=== PATIENT | female | born 2000 | race Asian ===

== ENCOUNTER 2024-06-02 16:54 | Inpatient (IN) ==
--- NOTE | 2024-06-02 18:04 | Emergency Department Note ---
Impression & Plan Optic neuritis, right, White matter abnormality on MRI of brain, Right-sided headache ED Provider Note NAME: CAMERON RINALDI AGE: 23 SEX: F : 2000 ARRIVES VIA: Walk-In \\INFORMANT: Patient ED PROVIDER(S): Chago Mari MD CHIEF COMPLAINT: Right sided headache, right eye blurred vision, ?optic neuritis, referred. 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 The patient was referred to ophthalmology ([facility]) this afternoon where her evaluation demonstrated defect within the right eye that was possibly consistent with optic neuritis. Patient was referred back to [facility] for further workup including "MRI and systemic workup". [facility] subsequently transferred the patient to the emergency department for testing. She is unaware of any known family history of multiple sclerosis or similar eye symptoms. [facility] was not available after hours per secretary bookkeeper attempt to contact. On evaluation the patient is no distress, afebrile stable vital signs. Pupils are dilated following her exam earlier today. Her visual mcknight are grossly intact. She has no discrete temporal tenderness. She has no focal logic deficits otherwise. EKG without overt acute ischemia. Chest x-ray negative for acute cardiopulmonary process per my preliminary independent interpretation. WBC, H/H and platelets within normal limits. Chemistry without metabolic acidosis. Electrolytes and LFTs are unremarkable. Lipase is normal. hCG negative. ESR and CRP are normal. Lyme screen was negative. MRI of the brain with and without contrast with MS protocol and MRI of the orbits with and without contrast were obtained and subsequently do show evidence of optic neuritis and demyelinating disease. Treatment was initiated with high-dose Solu-Medrol. Findings and plan for admission were reviewed with the patient and her friend and [employer] adviser at the bedside. Case was discussed with Dr. Mccloud, [facility] hospitalist, who will evaluate the patient for admission. Further management per admitting team. Triage Nursing notes reviewed and agree them. Prior/external medical records reviewed Vital Signs: reviewed Differential diagnosis: Conjunctivitis, trauma, corneal abrasion, hyphema, glaucoma, iritis, corneal ulcer, dendrite, CRAO, CRVO, vitreous detachment, retinal detachment, as well as other pathologies. ER treatment provided: See below. Diagnostics interpreted by me: ECG: Sinus bradycardia, 52 bpm, no ectopy, no overt ST elevation or depression, QTc 398, cures 78. Cardiac Monitoring: An order for continuous cardiac monitoring was placed and demonstrated Sinus bradycardia, 52 bpm, no ectopy Laboratory studies: See below Imaging studies: See below Consultation(s): Case was discussed with Dr. Mccloud, [facility] hospitalist, who will evaluate the patient for admission. 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 The patient was referred to ophthalmology this afternoon where her evaluation demonstrated defect within the right eye that was possibly consistent with optic neuritis. Patient was referred back to [facility] for further workup for this including "MRI and systemic workup". [facility] subsequently transferred the patient to emergency department for testing. ROS: See above HPI for pertinent positives & negatives. A total of 10 systems reviewed and were otherwise negative. VITALS:See Below PHYSICAL EXAMINATION: GENERAL: Awake, alert, well-appearing, in no distress HENT: Normocephalic, atraumatic. Oropharynx unremarkable. EYES: Normal conjunctiva. Sclera non-icteric. EOMI. No nystamgus. PEARRL. NECK: Supple. No nuchal rigidity. FROM. No JVD. RESPIRATORY: Clear to auscultation. CARDIAC: Regular rate, normal rhythm. Extremities warm and well perfused. Pulses equal. ABDOMEN: Soft, non-distended. No tenderness to palpation. No rebound or guarding. No masses. MUSCULOSKELETAL: Chest examination reveals no tenderness. The back is symmetrical on inspection without obvious abnormality. There is no CVA tenderness to palpation. No joint edema. LOWER EXTREMITIES: Calves are equal size bilaterally and non-tender. No edema. No discoloration. NEURO: Normal sensorium. No sensory or motor deficits noted. CNII-XII grossly intact. 5/5 strength and SILT x 4 extremities. Cerebellar function intact including [id number], alternating palms, [id number]. SKIN: No rash or jaundice noted. 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 Feels Safe at Home: Yes Allergies Allergies Allergy/AdvReac Type Severity Reaction Status Date / Time pineapple Allergy Unknown Unverified 06/02/24 22:05 Home Meds Home Medications Medication Instructions Recorded Confirmed No Known Home Medications 06/02/24 06/02/24 Results & Data (ED) Vital Signs Vital Signs - 24 hr 06/02/24 16:58 06/02/24 18:44 06/02/24 18:44 Temperature 36.7 C Temperature Source Oral Pulse Rate 82 55 L Pulse Rate [Apical] 55 L Pulse Rhythm [Apical] Pulse Strength [Apical] Respiratory Rate 20 17 17 Respiratory Effort / Characteristics Non-Labored Spontaneous Respiratory Depth Normal Respiratory Pattern Blood Pressure 127/77 Blood Pressure [Left Arm] 111/75 Blood Pressure Mean 93 Blood Pressure Mean [Left Arm] 87 Blood Pressure Position [Left Arm] Pulse Oximetry 98 99 99 Oxygen Delivery Method Room Air Room Air Room Air Sepsis Recent Fever Within 48 Hours No Sepsis New/Unexplained Change in Mental Status N/A Sepsis Action Taken by Nursing No Action Required 06/02/24 18:52 06/02/24 21:38 06/02/24 21:38 Temperature Temperature Source Pulse Rate 55 L Pulse Rate [Apical] 68 Pulse Rhythm [Apical] Pulse Strength [Apical] Respiratory Rate 14 Respiratory Effort / Characteristics Respiratory Depth Respiratory Pattern Blood Pressure Blood Pressure [Left Arm] 124/78 124/78 Blood Pressure Mean Blood Pressure Mean [Left Arm] 93 93 Blood Pressure Position [Left Arm] Sitting Pulse Oximetry 98 Oxygen Delivery Method Room Air Sepsis Recent Fever Within 48 Hours Sepsis New/Unexplained Change in Mental Status Sepsis Action Taken by Nursing 06/02/24 22:46 06/02/24 23:00 Temperature Temperature Source Pulse Rate 64 Pulse Rate [Apical] 59 L Pulse Rhythm [Apical] Regular Pulse Strength [Apical] Normal Respiratory Rate 18 Respiratory Effort / Characteristics Non-Labored Spontaneous Respiratory Depth Normal Respiratory Pattern Regular Blood Pressure Blood Pressure [Left Arm] Blood Pressure Mean Blood Pressure Mean [Left Arm] Blood Pressure Position [Left Arm] Pulse Oximetry 98 Oxygen Delivery Method Room Air Sepsis Recent Fever Within 48 Hours Sepsis New/Unexplained Change in Mental Status Sepsis Action Taken by Nursing Laboratory Data Attestation: I reviewed the patient's lab results. 06/02/24 18:20 06/02/24 18:20 Lab Results 06/02/24 06/02/24 Range/Units 18:01 18:20 WBC 8.56 (4.8-10.8) K/ul RBC 4.03 L (4.20-5.40) M/uL Hgb 12.6 (12.0-16.0) g/dl Hct 38.1 (37.0-47.0) % MCV 94.5 (80.0-100.0) fL MCH 31.3 (25.0-34.0) pg MCHC 33.1 (32.0-36.0) g/dL RDW Std Deviation 45.1 (36.4-46.3) fL RDW Coeff of Keenan 13.0 (11.5-14.5) % Plt Count 231 (130-400) K/uL MPV 9.4 (9.4-12.4) fL Immature Gran % (Auto) 0.2 % Neut % (Auto) 60.8 % Lymph % (Auto) 32.1 % [place] % (Auto) 6.0 % Eos % (Auto) 0.4 % Baso % (Auto) 0.5 % Neut # (Auto) 5.21 (1.40-6.50) K/uL Lymph # (Auto) 2.75 (1.20-3.40) K/uL [place] # (Auto) 0.51 (0.11-0.59) K/uL Eos # (Auto) 0.03 (0.00-0.50) K/uL Baso # (Auto) 0.04 (0.00-0.20) K/uL Immature Gran # (Auto) 0.02 (0.01-0.20) K/uL ESR 13 (0-20) mm/hr PT 10.7 (9.0-12.0) Seconds INR 1.0 (0.9-1.1) Sodium 139 (136-145) mmol/L Potassium 3.8 (3.5-5.1) mmol/L Chloride 106 (98-107) mmol/L Carbon Dioxide 27 (21-32) mmol/L Anion Gap 6 (3-11) BUN 14 (6-23) mg/dl Creatinine 0.74 (0.6-1.2) mg/dl Est Cr Clr Drug Dosing 79.0 ml/min eGFR 115.79 BUN/Creatinine Ratio 18.9 (10-20) Glucose 89 (70-99(Fasting)) mg/dl Calcium 9.8 (8.6-10.3) mg/dl Total Bilirubin 0.6 (0.2-1.0) mg/dl AST 17 (13-39) U/L ALT 11 (7-52) U/L Alkaline Phosphatase 40 (34-104) U/L Troponin I High Sens 2.4 (0-14) pg/ml C-Reactive Protein < 0.50 (0-0.5) mg/dl Total Protein 7.8 (6.0-8.3) gm/dl Albumin 4.9 (3.4-5.0) gm/dl Globulin 2.9 (2.5-4.0) gm/dl Albumin/Globulin Ratio 1.7 (0.9-2) Lipase 37 (11-82) U/L HCG, Qual Negative (Negative) Lyme Disease Screen Negative (Negative) Administered Medications Discontinued Medications Gadobutrol (Gadobutrol 65ml Vial) 4 ml IV ONCE ONE Stop: 06/02/24 20:08 Last Admin: 06/02/24 20:07 Dose: 4 ml Documented By: RADAMES Acetaminophen (Ofirmev) 1,000 mg in 100 mls @ 400 mls/hr IV NOW STA Stop: 06/02/24 21:35 Last Infusion: 06/02/24 22:06 Dose: Infused Documented By: Admin: 06/02/24 21:39 Dose: 400 mls/hr Documented By: REJI Sodium Chloride (Nss) 500 mls @ 999 mls/hr IV .Q31M ONE Stop: 06/02/24 21:51 Last Admin: 06/02/24 22:25 Dose: Not Given Documented By: REJI Methylprednisolone 500 mg/ (Dextrose) 108 mls @ 216 mls/hr IV TODAY@2200 [facility] Stop: 06/02/24 22:29 Last Infusion: 06/02/24 22:57 Dose: Infused Documented By: Admin: 06/02/24 22:21 Dose: 216 mls/hr Documented By: AVRamo Methylprednisolone 500 mg/ (Dextrose) 108 mls @ 216 mls/hr IV TODAY@2345 [facility] Stop: 06/03/24 00:14 Last Infusion: 06/03/24 00:35 Dose: Infused Documented By: Admin: 06/03/24 00:03 Dose: 216 mls/hr Documented By: ABRIL Imaging Data Radiologist's Impression: Chest X-Ray 06/02/24 18:03 XR chest 1V portable HISTORY: 23 years-old Female Chest pain, nonspecific acute chest pain COMPARISON: None available TECHNIQUE: AP view of the chest FINDINGS: Cardiomediastinal and hilar silhouettes appear normal. No pneumothorax, pleural effusion or airspace consolidation. The bones appear normal. IMPRESSION: Normal exam. ACT 112: Negative or not required by law. The above report was generated using voice recognition software. It may contain grammatical, syntax or spelling errors. Electronically signed by: Chandan Taylor M.D. 06/02/2024 6:24 PM Brain MRI 06/02/24 18:04 Exam(s): MRI HEAD W/WO Contrast IV Amt: 4cc gadavist EXAM: MR Head Without and With Intravenous Contrast CLINICAL HISTORY: Reason for exam: r/o optic neuritis, per optho. TECHNIQUE: Magnetic resonance images of the head/brain without and with intravenous contrast in multiple planes. CONTRAST: 4cc gadavist given IV COMPARISON: None. FINDINGS: Brain: Moderate, chronic white matter disease, nonspecific, though pattern suggestive of demyelinating disease. 3 mm enhancing focus in the left temporal deep white matter axial series , could reflect an acute demyelinating plaque. No other abnormal enhancement. No mass- effect, hemorrhage or acute infarct. Ventricles: No hydrocephalus or midline shift. Bones/joints: No acute finding. Soft tissues: No scalp hematoma. Optic nerve asymmetry, see separately dictated MRI orbit. Visualized Sinuses: Clear. Mastoid air cells: No mastoid effusion. IMPRESSION: 1. 3 mm enhancing nodule left temporal white matter, nonspecific, probably reflects an acute plaque. 2. Moderate, chronic, nonspecific white matter disease, concerning for demyelinating disease. Electronically signed by: Mary Boss M.D. 06/02/24 21:12 PM Orbit MRI 06/02/24 18:04 Exam(s): MRI ORBITS EXAM: MR Orbits With Intravenous Contrast CLINICAL HISTORY: Reason for exam: r/o optic neuritis, per optho. TECHNIQUE: Multiplanar magnetic resonance images of the orbits with intravenous contrast. CONTRAST: 4cc gadavist given IV COMPARISON: No relevant prior studies available. FINDINGS: Orbits: Increased signal and enhancement right optic nerve, nonspecific, given MRI brain findings, probably reflects optic neuritis. Neoplasm or other inflammatory/infectious abnormalities are not entirely excluded based on this exam alone.. Sinuses: Clear. No air-fluid levels. Bones/Soft tissues: Unremarkable. IMPRESSION: 1. Suspect RIGHT optic neuritis. Electronically signed by: Mary Boss M.D. 06/02/24 21:12 PM Discharge Plan Visit Data Chief Complaint: Eye Problems Stated Complaint: RT EYE, VISION PROBLEM, MRI TO BE DONE ED Provider: Chago Mari Discharge Problem: Optic neuritis, right, White matter abnormality on MRI of brain, Right-sided headache Forms Stand Alone Forms: [place] Prescriptions Prescriptions: No Action No Known Home Medications Referrals Referrals: [facility] [Primary Care Provider] -
--- NOTE | 2024-06-02 18:25 | XRay Report ---
XR chest 1V portable HISTORY: 23 years-old Female Chest pain, nonspecific acute chest pain COMPARISON: None available TECHNIQUE: AP view of the chest FINDINGS: Cardiomediastinal and hilar silhouettes appear normal. No pneumothorax, pleural effusion or airspace consolidation. The bones appear normal. IMPRESSION: Normal exam. ACT 112: Negative or not required by law. The above report was generated using voice recognition software. It may contain grammatical, syntax o r spelling errors. Electronically signed by: Chandan Taylor M.D. 06/02/2024 6:24 PM
[2024-06-02 18:44] LABS: Basophils # (auto) 0.04 K/uL (0.00-0.20); Basophils % (auto) 0.5 %; Eosinophils # (auto) 0.03 K/uL (0.00-0.50); Eosinophils % (auto) 0.4 %; Hematocrit (blood only) 38.1 % (37.0-47.0); Hemoglobin 12.6 g/dl (12.0-16.0); Immature Granulocytes # (auto) 0.02 K/uL (0.01-0.20); Immature Granulocytes % (auto) 0.2 %; Lymphocytes # (auto) 2.75 K/uL (1.20-3.40); Lymphocytes % (auto) 32.1 %; Mean Corpuscular Hemoglobin 31.3 pg (25.0-34.0); Mean Corpuscular Hgb Conc 33.1 g/dL (32.0-36.0); Mean Corpuscular Volume 94.5 fL (80.0-100.0); Mean Platelet Volume 9.4 fL (9.4-12.4); Monocytes # (auto) 0.51 K/uL (0.11-0.59); Neutrophils # (auto) 5.21 K/uL (1.40-6.50); Neutrophils % (auto) 60.8 %; Platelet Count 231 K/uL (130-400); RDW Standard Deviation 45.1 fL (36.4-46.3); Red Blood Count 4.03 M/uL (4.20-5.40); White Blood Count 8.56 K/ul (4.8-10.8)
[2024-06-02 19:00] LABS: Alanine Aminotransferase 11 U/L (7-52); Albumin Globulin Ratio 1.7 (0.9-2); Albumin Level 4.9 gm/dl (3.4-5.0); Alkaline Phosphatase 40 U/L (34-104); Anion Gap 6 (3-11); Aspartate Aminotransferase 17 U/L (13-39); BUN Creatinine Ratio 18.9 (10-20); Bilirubin,Total 0.6 mg/dl (0.2-1.0); Blood Urea Nitrogen 14 mg/dl (6-23); Calcium 9.8 mg/dl (8.6-10.3); Carbon Dioxide 27 mmol/L (21-32); Chloride 106 mmol/L (98-107); Globulin 2.9 gm/dl (2.5-4.0); Glucose 89 mg/dl (70-99(Fasting)); Lipase 37 U/L (11-82); Potassium 3.8 mmol/L (3.5-5.1); Sodium 139 mmol/L (136-145); Total Protein 7.8 gm/dl (6.0-8.3)
[2024-06-02 19:06] LABS: Troponin I High Sensitivity 2.4 pg/ml (0-14)
[2024-06-02 19:36] LABS: Prothrombin Time 10.7 Seconds (9.0-12.0)
[2024-06-02] MEDS: GADOBUTROL 65ML VIAL IV ONE (20:07)
[2024-06-02 20:10] LABS: Pregnancy Test, Serum Negative (Negative)
--- NOTE | 2024-06-02 21:13 | Magnetic Resonance Report ---
Exam(s): MRI ORBITS EXAM: MR Orbits With Intravenous Contrast CLINICAL HISTORY: Reason for exam: r/o optic neuritis, per optho. TECHNIQUE: Multiplanar magnetic resonance images of the orbits with intravenous contrast. CONTRAST: 4cc gadavist given IV COMPARISON: No relevant prior studies available. FINDINGS: Orbits: Increased signal and enhancement right optic nerve, nonspecific, given MRI brain findings, probably reflects optic neuritis. Neoplasm or other inflammatory/infectious abnormalities are not entirely excluded based on this exam alone.. Sinuses: Clear. No air-fluid levels. Bones/Soft tissues: Unremarkable. IMPRESSION: 1. Suspect RIGHT optic neuritis. Electronically signed by: Mary Boss M.D. 06/02/24 21:12 PM
--- NOTE | 2024-06-02 21:14 | Magnetic Resonance Report ---
Exam(s): MRI HEAD W/WO Contrast IV Amt: 4cc gadavist EXAM: MR Head Without and With Intravenous Contrast CLINICAL HISTORY: Reason for exam: r/o optic neuritis, per optho. TECHNIQUE: Magnetic resonance images of the head/brain without and with intravenous contrast in multiple planes. CONTRAST: 4cc gadavist given IV COMPARISON: None. FINDINGS: Brain: Moderate, chronic white matter disease, nonspecific, though pattern suggestive of demyelinating disease. 3 mm enhancing focus in the left temporal deep white matter axial series 1416, could reflect an acute demyelinating plaque. No other abnormal enhancement. No mass- effect, hemorrhage or acute infarct. Ventricles: No hydrocephalus or midline shift. Bones/joints: No acute finding. Soft tissues: No scalp hematoma. Optic nerve asymmetry, see separately dictated MRI orbit. Visualized Sinuses: Clear. Mastoid air cells: No mastoid effusion. IMPRESSION: 1. 3 mm enhancing nodule left temporal white matter, nonspecific, probably reflects an acute plaque. 2. Moderate, chronic, nonspecific white matter disease, concerning for demyelinating disease. Electronically signed by: Mary Boss M.D. 06/02/24 21:12 PM
[2024-06-02] MEDS ORDERED: methylPREDNISolone 1000 MG/16 ML IV STA (21:21)
[2024-06-02] MEDS: ACETAMINOPHEN 1,000 MG/100 ML VIAL IV STA (21:39)
[2024-06-02 21:46] LABS: C Reactive Protein < 0.50 mg/dl (0-0.5)
[2024-06-02] MEDS: methylPREDNISolone 500 MG in DEXTROSE 5% 100 ML IV SCH (22:21)
[2024-06-02] MEDS: SODIUM CHLORIDE 0.9% 500 ML IV ONE (22:25)
[2024-06-02] MEDS ORDERED: methylPREDNISolone 125 MG/2 ML VIAL IV STA (23:26)
[2024-06-03] MEDS: MINI B IV SCH (00:03)
[2024-06-03] MEDS: DEXTROSE 5% IV SCH (00:03)
[2024-06-03] MEDS: METHYLPREDNISOLONE IV SCH (00:03)
[2024-06-03] MEDS ORDERED: ONDANSETRON INJ 2 MG/ML 2 ML VIAL IV PRN (01:31)
--- NOTE | 2024-06-03 02:31 | History & Physical Report ---
Date of Service June 03, 2024 Assessment & Plan (1) Demyelinating disease: (2) Right-sided headache: (3) White matter abnormality on MRI of brain: (4) Optic neuritis, right: Plan Right-sided headache/right optic neuritis/abnormal MRI of brain suggesting demyelinating disease- Patient initially presented to [facility] with complaint of right-sided headache for 2 weeks, and progressively worsening blurred vision over the past week. She was then seen by ophthalmology Dr. Hu, who noted an abnormal visual field test suggestive of optic neuritis, and the patient was sent back to [facility]. 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 [facility] sent her to ophthalmology Dr. Hu, who did visual field testing with concerns regarding possibility of optic neuritis. He then sent the patient back to [facility], who then sent the patient to [facility] for further evaluation. In the emergency department, patient underwent an MRI brain with and without contrast which showed a 3 mm enhancing nodular left temporal white matter, likely representing an acute plaque. There was also noted moderate chronic white matter disease, concerning for demyelinating disease. MRI of orbits was concerning for possible right optic neuritis. The patient was then given methylprednisolone 500 mg IV by the ED, and referred for evaluation for admission. 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 She presents to the emergency department this evening with symptoms as noted above. In addition, she feels generally weak, and has occasional issues with memory function. Allergies Allergy/AdvReac Type Severity Reaction Status Date / Time pineapple Allergy Unknown Unverified 06/02/24 22:05 Home Medications Medication Instructions Recorded Confirmed Type No Known Home Medications 06/02/24 06/02/24 History Past Med/Surg History Problem List (Updated 06/03/24 @ 03:38 by Sancho Mccloud MD) Demyelinating disease Right-sided headache (Acute) White matter abnormality on MRI of brain (Acute) Optic neuritis, right (Acute) Medical History (Updated 06/03/24 @ 03:38 by Sancho Mccloud MD) Kidney stone Social History (Updated 06/03/24 @ 01:01 by Chago Mari MD) Smoking Status: Current every day smoker Tobacco Type: Cigarettes Hx Alcohol Use: No Hx Substance Use: No Preferred Language: British Communication Ability: Effective Communication Tools: IPad Metal Hanging Supervisor Required: No Beliefs That Will Affect Care: None current occupational status: student 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 The review of systems is otherwise negative other than for that already noted above, and at least 10 systems have been reviewed. Physical Exam Physical Exam: The patient is awake, alert and oriented 3, well developed and well nourished, normocephalic and atraumatic, lying in bed and in no acute distress. HEENT--PERRL, EOMI, Regino Seda pupil on right. Mucous membranes and oropharynx normal Neck--supple. No JVD. No bruits. Thyroid normal, trachea midline, no adenopathy. Heart--normal S1 and S2. No murmurs, rubs or gallops. Lungs--clear bilaterally, no respiratory distress, no accessory muscle use. Abdomen--normal bowel sounds and soft. Nontender. Nondistended, no hernias or masses, no organomegaly. Extremities--no cyanosis or clubbing. No edema. There are good distal pulses b/l. Dermatologic--normal skin turgor, normal color, no abnormal lymph nodes, no rash. Neurologic--cranial nerves II through XII grossly intact. Rheumatologic--normal range of motion. Psychiatric--normal affect. Results & Data Results & Data Vital Signs (Past 12 Hours) Vital Signs Temp Pulse Pulse Resp BP BP Pulse Ox 06/03/24 01:43 98 06/03/24 01:31 49 L 17 98 06/03/24 01:00 48 L 15 104/65 98 06/02/24 23:00 59 L 18 98 06/02/24 22:46 64 06/02/24 21:38 124/78 06/02/24 21:38 68 14 124/78 98 06/02/24 18:52 55 L 06/02/24 18:44 55 L 17 99 06/02/24 18:44 55 L 17 111/75 99 06/02/24 16:58 36.7 C 82 20 127/77 98 O2 Del Method 06/03/24 01:43 Room Air 06/03/24 01:31 06/03/24 01:00 Room Air 06/02/24 23:00 Room Air 06/02/24 22:46 06/02/24 21:38 06/02/24 21:38 Room Air 06/02/24 18:52 06/02/24 18:44 Room Air 06/02/24 18:44 Room Air 06/02/24 16:58 Room Air Laboratory Results Laboratory Results WBC 8.56 K/ul (4.8-10.8) 06/02/24 18:20 RBC 4.03 M/uL (4.20-5.40) L 06/02/24 18:20 Hgb 12.6 g/dl (12.0-16.0) 06/02/24 18:20 Hct 38.1 % (37.0-47.0) 06/02/24 18:20 MCV 94.5 fL (80.0-100.0) 06/02/24 18:20 MCH 31.3 pg (25.0-34.0) 06/02/24 18:20 MCHC 33.1 g/dL (32.0-36.0) 06/02/24 18:20 RDW Std Deviation 45.1 fL (36.4-46.3) 06/02/24 18:20 RDW Coeff of Keenan 13.0 % (11.5-14.5) 06/02/24 18:20 Plt Count 231 K/uL (130-400) 06/02/24 18:20 MPV 9.4 fL (9.4-12.4) 06/02/24 18:20 Immature Gran % (Auto) 0.2 % 06/02/24 18:20 Neut % (Auto) 60.8 % 06/02/24 18:20 Lymph % (Auto) 32.1 % 06/02/24 18:20 [place] % (Auto) 6.0 % 06/02/24 18:20 Eos % (Auto) 0.4 % 06/02/24 18:20 Baso % (Auto) 0.5 % 06/02/24 18:20 Neut # (Auto) 5.21 K/uL (1.40-6.50) 06/02/24 18:20 Lymph # (Auto) 2.75 K/uL (1.20-3.40) 06/02/24 18:20 Lajas # (Auto) 0.51 K/uL (0.11-0.59) 06/02/24 18:20 Eos # (Auto) 0.03 K/uL (0.00-0.50) 06/02/24 18:20 Baso # (Auto) 0.04 K/uL (0.00-0.20) 06/02/24 18:20 Immature Gran # (Auto) 0.02 K/uL (0.01-0.20) 06/02/24 18:20 ESR 13 mm/hr (0-20) 06/02/24 18:20 PT 10.7 Seconds (9.0-12.0) 06/02/24 18:20 INR 1.0 (0.9-1.1) 06/02/24 18:20 Sodium 139 mmol/L (136-145) 06/02/24 18:20 Potassium 3.8 mmol/L (3.5-5.1) 06/02/24 18:20 Chloride 106 mmol/L (98-107) 06/02/24 18:20 Carbon Dioxide 27 mmol/L (21-32) 06/02/24 18:20 Anion Gap 6 (3-11) 06/02/24 18:20 BUN 14 mg/dl (6-23) 06/02/24 18:20 Creatinine 0.74 mg/dl (0.6-1.2) 06/02/24 18:20 Est Cr Clr Drug Dosing 79.0 ml/min 06/02/24 18:20 eGFR 115.79 06/02/24 18:20 BUN/Creatinine Ratio 18.9 (10-20) 06/02/24 18:20 Glucose 89 mg/dl (70-99(Fasting)) 06/02/24 18:20 Calcium 9.8 mg/dl (8.6-10.3) 06/02/24 18:20 Total Bilirubin 0.6 mg/dl (0.2-1.0) 06/02/24 18:20 AST 17 U/L (13-39) 06/02/24 18:20 ALT 11 U/L (7-52) 06/02/24 18:20 Alkaline Phosphatase 40 U/L (34-104) 06/02/24 18:20 Troponin I High Sens 2.4 pg/ml (0-14) 06/02/24 18:20 C-Reactive Protein < 0.50 mg/dl (0-0.5) 06/02/24 18:20 Total Protein 7.8 gm/dl (6.0-8.3) 06/02/24 18:20 Albumin 4.9 gm/dl (3.4-5.0) 06/02/24 18:20 Globulin 2.9 gm/dl (2.5-4.0) 06/02/24 18:20 Albumin/Globulin Ratio 1.7 (0.9-2) 06/02/24 18:20 Lipase 37 U/L (11-82) 06/02/24 18:20 HCG, Qual Negative (Negative) 06/02/24 18:01 Lyme Disease Screen Negative (Negative) 06/02/24 18:20 Impressions Chest X-Ray 06/02/24 18:03 XR chest 1V portable HISTORY: 23 years-old Female Chest pain, nonspecific acute chest pain COMPARISON: None available TECHNIQUE: AP view of the chest FINDINGS: Cardiomediastinal and hilar silhouettes appear normal. No pneumothorax, pleural effusion or airspace consolidation. The bones appear normal. IMPRESSION: Normal exam. ACT 112: Negative or not required by law. The above report was generated using voice recognition software. It may contain grammatical, syntax or spelling errors. Electronically signed by: Chandan Taylor M.D. 06/02/2024 6:24 PM Brain MRI 06/02/24 18:04 Exam(s): MRI HEAD W/WO Contrast IV Amt: 4cc gadavist EXAM: MR Head Without and With Intravenous Contrast CLINICAL HISTORY: Reason for exam: r/o optic neuritis, per optho. TECHNIQUE: Magnetic resonance images of the head/brain without and with intravenous contrast in multiple planes. CONTRAST: 4cc gadavist given IV COMPARISON: None. FINDINGS: Brain: Moderate, chronic white matter disease, nonspecific, though pattern suggestive of demyelinating disease. 3 mm enhancing focus in the left temporal deep white matter axial series 14/16, could reflect an acute demyelinating plaque. No other abnormal enhancement. No mass- effect, hemorrhage or acute infarct. Ventricles: No hydrocephalus or midline shift. Bones/joints: No acute finding. Soft tissues: No scalp hematoma. Optic nerve asymmetry, see separately dictated MRI orbit. Visualized Sinuses: Clear. Mastoid air cells: No mastoid effusion. IMPRESSION: 1. 3 mm enhancing nodule left temporal white matter, nonspecific, probably reflects an acute plaque. 2. Moderate, chronic, nonspecific white matter disease, concerning for demyelinating disease. Electronically signed by: Mary Boss M.D. 06/02/24 21:12 PM Orbit MRI 06/02/24 18:04 Exam(s): MRI ORBITS EXAM: MR Orbits With Intravenous Contrast CLINICAL HISTORY: Reason for exam: r/o optic neuritis, per optho. TECHNIQUE: Multiplanar magnetic resonance images of the orbits with intravenous contrast. CONTRAST: 4cc gadavist given IV COMPARISON: No relevant prior studies available. FINDINGS: Orbits: Increased signal and enhancement right optic nerve, nonspecific, given MRI brain findings, probably reflects optic neuritis. Neoplasm or other inflammatory/infectious abnormalities are not entirely excluded based on this exam alone.. Sinuses: Clear. No air-fluid levels. Bones/Soft tissues: Unremarkable. IMPRESSION: 1. Suspect RIGHT optic neuritis. Electronically signed by: Mary Boss M.D. 06/02/24 21:12 PM Code Status & VTE Plan Code Status Full code VTE Prophylaxis Plan VTE Prophylaxis will be ordered: Yes PG Care Time/CCT Total # of Minutes Spent Total Time Spent with Patient: Total time spent is greater than 50% in coordination of care (as documented) at patient's floor/unit and/or counseling patient: Coding Level of Care Code 00281 INT INP/OBS CARE 2/55MIN Diagnoses Demyelinating disease G37.9 Right-sided headache R51.9 White matter abnormality on MRI of brain R90.82 Optic neuritis, right H46.9
[2024-06-03 06:59] LABS: Basophils # (auto) 0.01 K/uL (0.00-0.20); Basophils % (auto) 0.1 %; Hematocrit (blood only) 37.7 % (37.0-47.0); Hemoglobin 12.3 g/dl (12.0-16.0); Immature Granulocytes # (auto) 0.02 K/uL (0.01-0.20); Immature Granulocytes % (auto) 0.3 %; Lymphocytes # (auto) 0.89 K/uL (1.20-3.40); Lymphocytes % (auto) 13.1 %; Mean Corpuscular Hemoglobin 30.8 pg (25.0-34.0); Mean Corpuscular Hgb Conc 32.6 g/dL (32.0-36.0); Mean Corpuscular Volume 94.3 fL (80.0-100.0); Mean Platelet Volume 9.5 fL (9.4-12.4); Monocytes # (auto) 0.03 K/uL (0.11-0.59); Monocytes % (auto) 0.4 %; Neutrophils # (auto) 5.85 K/uL (1.40-6.50); Neutrophils % (auto) 86.1 %; Platelet Count 223 K/uL (130-400); RDW Coefficient of Variation 12.8 % (11.5-14.5); RDW Standard Deviation 44.4 fL (36.4-46.3)
--- NOTE | 2024-06-03 07:10 | Hospitalist Progress Note ---
Date of Service June 03, 2024 Assessment & Plan (1) Demyelinating disease: (2) Right-sided headache: (3) White matter abnormality on MRI of brain: (4) Optic neuritis, right: Plan Right-sided headache/right optic neuritis/abnormal MRI of brain suggesting demyelinating disease Patient was c/o of head and progressing blurry vision. She was seen by providers at [facility] and initially referred to ophthalmology. She came to the ED by recommendation of [facility] and found to have brain imaging changes consistent with Multiple Sclerosis. In the ED, patient received Solu- Medrol 500 mg IV x 2, acetaminophen 1 g IV, and NSS 500 mL bolus Pt was admitted to Med tele unit for further work up. Neurology consulted further testing. -Consult neurology Recommended lumbar puncture with CSF testing, cervical and thoracic MRI, LAM panel and CHRISTELLE virus antibody - IV Solu-Medrol 1000 mg x 2 days - Lyme panel - AM labs: B12, VitD Dispo: Med tele Diet: Regular Code: full VTE prophylaxis: SCD Admission and Anticipated Discharge Date Admission Date: June 02, 2024 Supervising Physician Co-Signing Physician Notes I personally examined the patient and verified all kang points of history and exam, discussed case, and agree with decision making with Dr Tinsley feeling about the same with vision and brain fog. extensive discussion with pt, academic support, friend (both with patient's permission) and utilized [employer] operations research group manager as well. she asked good questions and expressed good understanding new dx MS - steroids 1g solumedrol x3 days. LP done, MRI Cspine, Tspine ordered, pending. supportive care, get set up for close PCP and neuro follow up locally otherwise as above Subjective Pt is a 23 yo female who presented to ED with c/o headache and changes in her vision. Pt had also been noting general weakness in arm and legs. She underwent Brain MRI with/without contrast and found changes consistent with multiple sclerosis. Pt was started on corticosteroid. This morning, pt is noting improvement in extremity strength and reduction in PALMA, but continued with blurry vision. Review of Systems Review of Systems: As per HPI Physical Exam Physical Exam: The patient is awake, alert and oriented 3,normocephalic and atraumatic, sitting up in bed and in no acute distress. HEENT--PERRL, EOMI, Mucous membranes and oropharynx normal Neck--supple. No JVD. No bruits. No adenopathy. Heart--normal S1 and S2. No murmurs, rubs or gallops. Lungs--clear bilaterally, no respiratory distress, no accessory muscle use. Abdomen--normal bowel sounds and soft. Nontender. Nondistended Extremities--no cyanosis or clubbing. No edema. There are good distal pulses b/l. Dermatologic--normal skin turgor, normal color, no abnormal lymph nodes, no rash. Neurologic--cranial nerves II through XII grossly intact. Rheumatologic--normal range of motion. Psychiatric--normal affect. Results & Data Results & Data Vital Signs (Past 12 Hours) Vital Signs Pulse Pulse Resp BP BP Pulse Ox Pulse Ox 06/03/24 06:09 41 L 17 94/59 L 97 06/03/24 03:52 99 06/03/24 01:43 98 06/03/24 01:31 49 L 17 98 06/03/24 01:00 48 L 15 104/65 98 06/02/24 23:00 59 L 18 98 06/02/24 22:46 64 06/02/24 21:38 124/78 06/02/24 21:38 68 14 124/78 98 O2 Del Method O2 Del Method 06/03/24 06:09 Room Air 06/03/24 03:52 Room Air 06/03/24 01:43 Room Air 06/03/24 01:31 06/03/24 01:00 Room Air 06/02/24 23:00 Room Air 06/02/24 22:46 06/02/24 21:38 06/02/24 21:38 Room Air Resident Activity Tracking Resident Involvement: Resident Care Provided Care Provided: Adult Hospital Medicine
[2024-06-03 07:36] LABS: Albumin Globulin Ratio 1.8 (0.9-2); Albumin Level 4.5 gm/dl (3.4-5.0); BUN Creatinine Ratio 18.8 (10-20); Bilirubin,Total 0.7 mg/dl (0.2-1.0); Calcium 9.1 mg/dl (8.6-10.3); Creatinine Clr Calc Pharmacy 91.4 ml/min; Globulin 2.5 gm/dl (2.5-4.0); Magnesium 2.1 mg/dl (1.7-2.4); Potassium 4.6 mmol/L (3.5-5.1)
--- NOTE | 2024-06-03 10:45 | Neurology Consultation ---
Date of Consultation June 03, 2024 Assessment & Plan (1) Demyelinating disease: (2) Right-sided headache: (3) Optic neuritis, right: Plan Patient has a 1 week history of blurry vision in the right eye of sudden onset. Ophthalmologic examination plus MRI of the brain is consistent with an acute right optic neuritis. MRI of the brain with and without contrast shows multiple lesions scattered throughout the hemispheres, cerebellum, brainstem, and probable spinal cord. T he perpendicular periventricular lesions (Rod's fingers) are very suggestive of multiple sclerosis. Although she does not have a lot of history suggestive of MS (left hand numbness for 2 weeks back in January of this year), her clinical picture fits that of MS. She does not have an obvious rheumatologic condition or Lyme's disease (which could imitate MS). Recommendations: 1. A lumbar puncture sending for MS special protein panel, Lyme disease is reasonable. Ideally this should be done before steroids are given. 2. Solu-Medrol 1 g daily x 3 days. This should be followed by a Medrol Dosepak orally. 3. Check LAM profile 12, also get a CHRISTELLE virus antibody titer and AQP4-IgG (for neuromyelitis optica) 4. MRIs of the cervical spine and thoracic spine (both with and without contrast) to evaluate the extent and severity of MS (disease burden). 5. Follow-up with neurology as an outpatient in 2 to 3 weeks (could be sooner with neurology PA via telehealth if the patient gets onto the [facility] portal). We will consider definitive disease modifying therapy at that time Overall, I spent a total of 90 minutes with this case including review of records, review of MRI films, direct evaluation the patient at bedside, report generation, and discussion of the case with the patient and RN at bedside, and Dr. Champion, including differential diagnosis and treatment options. History of Present Illness Reason for Consultation: Patient is a 23-year-old, who was asked to see at the request of Dr. Klaudia ferguson, for neurologic consultation regarding vision issues and possible MS. Requesting Physician: Dr. 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 She is on no medication and has no significant/ongoing medical problems. 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 There have been episodes of dizziness and headache but no other discrete neurologic dysfunction episodes that I can gather. The patient has a longstanding history of intermittent headaches starting from early high school. Currently they are occurring about twice a month. The headache tends to be bifrontal radiating back around to the occipital head regions bilaterally. There is no nausea, vomiting, photophobia, or phonophobia. She will take pain medicine that she gets [id number] from [employer] which helps. As far as I can tell it is likely an ibuprofen product. She had the sudden onset of blurry vision in her right eye about 1 week ago. She has been having right-sided headaches intermittently for a couple of weeks. This blurry vision has persisted and is only involving the right eye (when she covers the right eye her left eye sees clearly. It is a little worse when she looks up with the right eye as opposed to straight ahead. The patient saw a clinician at [facility], who told her that she had right optic neuritis. She arrived to the emergency room at 1651 on June 02 with a temperature of 36.7, pulse 82 and regular, respirate 20, blood pressure 122/77, and O2 saturation 98%. Neurologic examination was largely unremarkable. CBC was unremarkable. Sed rate was 13 and CRP less than 0.5. CHEM profile was unremarkable, test was negative and her Lyme test was negative. Chest x-ray was unremarkable. MRI of the brain with and without contrast which showed multiple white matter spots of varying size with many perpendicular to the ventricles (Rod's fingers). I also saw lesions in the cerebellum, jennifer, and cervical spine (on sagittal). There was 1 lesion in the left temporal lobe of 3 mm that enhanced, likely acute plaque. MRI of the orbits showed distinct inflammation of the distal right optic nerve. I reviewed all of these films. Patient was given 1 g of IV Solu-Medrol. This morning she is about the same although her headache is improved. She still has the blurry vision. 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 Beliefs That Will Affect Care: None current occupational status: student current occupation: [employer] student Feels Safe at Home: Yes Assistive Devices: Glasses Review of Systems Constitutional: no fever, no fatigue and no weakness Eyes: + worsening vision; no diplopia and no e ye pain Ear, Nose, Mouth, Throat: no ear pain, no tinnitus, no hearing loss, no dizziness, no snoring, no hoarseness and no dysphagia Respiratory: no cough and no dyspnea Cardiovascular: no chest pain, no palpitations and no lightheadedness Gastrointestinal: no abdominal pain, no nausea and no vomiting Genitourinary: no dysuria, no urinary frequency and no urinary incontinence Musculoskeletal: no back pain, no neck pain, no radicular pain, no joint pain and no myalgia Integumentary: no rash and no lesions Neurologic: + numbness; no gait abnormality, no loca lized weakness, no generalized weakness, no tingling, no tremor(s), no abnormal movements, no headache(s), no abnormal speech, no confusion and no memory loss Psychiatric: no depression, no irritability, no anxiety, no difficulty concentrating, no confusion and no hallucinations Endocrine: no fatigue and no flushing Hematologic / Lymphatic: no easy bleeding and no easy bruising Allergy / Immunological: no urticaria and no problem reported Exam (Neuro) Physical Exam: The patient is right-handed. The patient is awake, alert, and attentive. Speech is normal without any aphasia or dysarthria. Mentation and thought processes are intact, with full orientation and normal fund of knowledge. Mood and affect are normal and appropriate. Appearance and grooming are normal. Short and long-term memory are intact. The discs are sharp with positive venous pulsations bilaterally. There are no exudates, hemorrhages, or blood vessel changes seen. The right optic disc did not seem inflamed to my examination but I did not dilate the pupils. Pupils are 4 mm bilaterally and reactive to light. There was no afferent pupillary defect. Extraocular eye muscles are intact without nystagmus. Visual acuity and visual mcknight seem normal grossly to confrontation. There are no deficits to sensation in the face in all 3 distributions of the fifth cranial nerve bilaterally. Corneal reflexes are positive bilaterally. Facial strength and symmetry was normal bilaterally. Hearing seems intact grossly to voice and finger rub bilaterally. Palate moves well without asymmetry. There is normal sternocleidomastoid and trapezius strength bilaterally. Tongue is midline with good strength bilaterally. Neck has a full range of motion without discomfort. Cervical, thoracic, and lumbar spine are nontender to palpation. Gait is narrow based, with good arm swing, turns, and stance. Stance sitting on the bed with feet dangling is normal. With outstretched arms there is no drift. There are no resting, postural, or action tremors. There is no ataxia with finger to nose testing. There is good facility in the hands. No other abnormal involuntary movements are noted. Motor strength is 5/5 diffusely in the arms bilaterally including deltoids, biceps, triceps, brachioradialis, wrist flexors and extensors, calculation clerk, and intrinsic hand muscles. Motor strength is 5/5 diffusely in the legs bilaterally including hip flexors, quadriceps, hamstrings, gastrocnemius, tibialis anterior, tibialis posterior, and Peroneii muscles bilaterally. Toe extensors are normal and there is good bulk in the extensor digitorum brevis muscles bilaterally. The limbs have good tone without rigidity or spasticity. There is no atrophy noted in the muscles. Muscle bulk is normal, there is no tenderness to palpation, no myotonia to percussion, and no fasciculations seen. Sensory examination is intact to touch and pin throughout all 4 limbs diffusely. Reflexes are 2/4 in the biceps, triceps, brachioradialis, quadriceps, and Achilles tendons bilaterally. Toes are downgoing with plantar stimulation bilaterally. Peripheral pulses are present and of normal quality distally in all 4 limbs. There is no peripheral edema noted in the limbs. Results & Data Vital Signs (Past 12 Hours) Vital Signs Pulse Pulse Resp BP BP Pulse Ox Pulse Ox 06/03/24 09:18 80 18 06/03/24 09:00 87/57 L 06/03/24 08:57 58 L 20 98 06/03/24 08:21 54 L 19 97 10/23/24 08:00 105/68 06/03/24 07:57 56 L 23 98 06/03/24 07:03 46 L 15 98 06/03/24 07:00 94/57 L 06/03/24 06:45 44 L 17 98 06/03/24 06:09 41 L 17 94/59 L 97 06/03/24 03:52 99 06/03/24 01:43 98 06/03/24 01:31 49 L 17 98 06/03/24 01:00 48 L 15 104/65 98 06/02/24 23:00 59 L 18 98 06/02/24 22:46 64 O2 Del Method O2 Del Method 06/03/24 09:18 06/03/24 09:00 06/03/24 08:57 06/03/24 08:21 06/03/24 08:00 06/03/24 07:57 06/03/24 07:03 06/03/24 07:00 06/03/24 06:45 06/03/24 06:09 Room Air 06/03/24 03:52 Room Air 06/03/24 01:43 Room Air 06/03/24 01:31 06/03/24 01:00 Room Air 06/02/24 23:00 Room Air 06/02/24 22:46 PG Care Time/CCT Total # of Minutes Spent Total Time Spent with Patient: Total time spent is greater than 50% in coordination of care (as documented) at patient's floor/unit and/or counseling patient: Coding Level of Care Code 95474 INT INP/OBS CARE 3/75MIN Diagnoses Demyelinating disease G37.9 Right-sided headache R51.9 Optic neuritis, right H46.9 Time Spent (min) 90
[2024-06-03] MEDS ORDERED: methylPREDNISolone 10 mg/mL (For Ped Dose < 7mg) IV SCH (14:00)
[2024-06-03] MEDS ORDERED: methylPREDNISolone 1,000 MG in DEXTROSE 5% 250 ML IV SCH (14:00)
--- NOTE | 2024-06-03 14:25 | Fluoroscopy Report ---
LUMBAR PUNCTURE UNDER FLUOROSCOPY CLINICAL HISTORY: Optic neuritis; possible MS PROCEDURE: Procedure and risks were explained. Informed consent was obtained. A final timeout was com pleted. The patient was placed prone on the fluoroscopic exam table. The lower lumbar region was prep ped and draped in sterile fashion. 1% lidocaine was utilized for skin anesthesia. Utilizing fluoroscopic guidance, a 22-gauge spinal needle was advanced into the intrathecal space at the L3-4 disc space level. Fluoroscopic spot images were obtained. Approximately 8 mL of clear CSF f luid was removed and sent to lab for analysis. The needle was removed and Band-Aid applied. The patie nt tolerated the procedure well. Vital signs will be monitored postprocedure. Fluoroscopy time 5 seconds. Study dosed 2.17 mGy. IMPRESSION: Lumbar puncture as above. Performed, dictated, and signed by Rhys Hawk PA-C; to be co-signed by Dr. Chandan Taylor. Electronically signed by: Chandan Taylor M.D. 06/03/2024 2:38 PM
[2024-06-03 15:38] LABS: Appearance CSF Clear; CSF Count Tube # 3; CSF Xanthrochromic No xanthochromia; Color CSF Colorless; Red Blood Cell CSF Manual 0 (0-); White Blood Cell CSF Manual 1 (0-5)
[2024-06-03] MEDS: ACETAMINOPHEN 325 MG TAB PO PRN (17:32)
--- NOTE | 2024-06-03 21:09 | Electrocardiogram Report ---
Test Reason : Blood Pressure : */* mmHG Vent. Rate : 52 BPM Atrial Rate : 52 BPM P-R Int : 144 ms QRS Dur : 78 ms QT Int : 428 ms P-R-T Axes : 21 64 62 degrees QTcB Int : 398 ms Sinus bradycardia Otherwise normal ECG No previous ECGs available Confirmed by Layo Mai ([id number]) on 06/03/2024 9:08:37 PM Referred By: REFERRED SELF Confirmed By: Layo Mai
[2024-06-03] MEDS: GADOBUTROL 65ML VIAL IV ONE (23:30)
--- NOTE | 2024-06-04 02:16 | Magnetic Resonance Report ---
Exam(s): MRI T SPINE W/WO Contrast IV Amt: 4cc gadavist EXAM: MR Thoracic Spine Without and With Intravenous Contrast CLINICAL HISTORY: Reason for exam: MS. TECHNIQUE: Magnetic resonance images of the thoracic spine without and with intravenous contrast in multiple planes. CONTRAST: Patient received 4cc gadavist of IV contrast COMPARISON: No relevant prior studies available. FINDINGS: Vertebrae: Unremarkable. No acute fracture. Discs/spinal canal/neural foramina: No acute findings. No significant disc disease. No spinal canal stenosis. Spinal cord: Unremarkable. Normal signal. No abnormal enhancement. Soft tissues: Unremarkable. IMPRESSION: Negative MRI of the thoracic spine.. Electronically signed by: Cheri De La Cruz MD 06/04/24 02:15 AM
--- NOTE | 2024-06-04 02:25 | Magnetic Resonance Report ---
Exam(s): MRI C SPINE IV Amt: 4cc gadavist EXAM: MR Cervical Spine With Intravenous Contrast CLINICAL HISTORY: Reason for exam: MS. TECHNIQUE: Magnetic resonance images of the cervical spine with intravenous contrast in multiple planes. CONTRAST: Patient received 4cc gadavist of IV contrast COMPARISON: No relevant prior studies available. FINDINGS: Vertebrae: There are 7 cervical type vertebral bodies with a generalized curve to the to the left and straightening the normal cervical lordosis. There is normal vertebral body height and alignment. The bone marrow signal is normal. No acute fracture. Spinal cord: There are multiple white matter lesions in the jennifer, medulla and cervical cord, the largest at C2-3. No evidence of abnormal enhancement to suggest active demyelination. Soft tissues: The cervical flow voids are intact. DISCS/SPINAL CANAL/NEURAL FORAMINA: C2-C3: Unremarkable. No significant disc disease. No stenosis. C3-C4: Unremarkable. No significant disc disease. No stenosis. C4-C5: Unremarkable. No significant disc disease. No stenosis. C5-C6: Unremarkable. No significant disc disease. No stenosis. C6-C7: Unremarkable. No significant disc disease. No stenosis. C7-T1: Unremarkable. No significant disc disease. No stenosis. IMPRESSION: Findings concerning for demyelinating disease. No evidence of abnormal enhancement to suggest active demyelination. Electronically signed by: Cheri De La Cruz MD 06/04/24 02:24 AM
--- NOTE | 2024-06-04 06:32 | Hospitalist Progress Note ---
Date of Service June 04, 2024 Assessment & Plan (1) Demyelinating disease: (2) Right-sided headache: (3) White matter abnormality on MRI of brain: (4) Optic neuritis, right: Plan Right-sided headache/right optic neuritis/abnormal MRI of brain suggesting demyelinating disease Patient was c/o of headache and progressing blurry vision. She was seen by providers at [place] [facility] and initially referred to ophthalmology. She came [facility] of [facility] and found to have brain imaging changes consistent with Multiple Sclerosis. In the ED, patient received Solu-Medrol 500 mg IV x 2, acetaminophen 1 g IV, and NSS 500 mL bolus Pt was admitted to Med tele unit for further work up. Neurology consulted further testing. Pt has lumbar puncture and CSF testing as well as MRI or cervical and thoracic spine on 06/03. - Neurology recs Noted lesions at cervical spine on MRI. Requesting Hep B and IgG serum to screen prior to starting treatment. Medrol dose pack at D/C for corticosteroid taper. - IV Solu-Medrol 1000 mg x 1 day - Lyme, CSF, and autoimmune panels pending - B12 is mild low at 408, VitD is low at 20.4 - Pt likely to be discharged 06/05- recommend establishing PCP and follow up as well as follow up with neurology in outpatient for MS treatment and surveillance. Dispo: Med tele Diet: Regular Code: full VTE prophylaxis: SCD Admission and Anticipated Discharge Date Admission Date: June 02, 2024 Supervising Physician Co-Signing Physician Notes I personally examined the patient and verified all kang points of history and exam, discussed case, and agree with decision making with Dr Tinsley no new issues, asks about being able to get home, discussed follow up vitals noted nad heent nc at mmm breathing unlabored no accessory muscles good effort skin no rashes no pallor or icterus new dx MS - steroids 1g solumedrol x3 days. LP done, MRI Cspine, Tspine ordered, pending. supportive care, get set up for close PCP and neuro follow up locally. will need aggressive D supplementation given that her level is ~20, she already takes 5000IU daily, and time of year makes it such that sunlight will not be adding much to her D for ~5-6 months otherwise as above Subjective Pt is a 23 yo female who presented to ED with c/o headache and changes in her vision. Pt had also been noting general weakness in arm and legs. She underwent Brain MRI with/without contrast and found changes consistent with multiple sclerosis. This morning, pt reporting continued blurry vision. Noting pain at lower back from lumbar puncture and fatigue from MR late last night. Review of Systems Review of Systems: As per HPI Physical Exam Physical Exam: The patient is awake, alert and oriented 3. HEENT--PERRL, EOMI, Mucous membranes and oropharynx normal Neck--supple. No JVD. No bruits. No adenopathy. Heart--normal S1 and S2. No murmurs, rubs or gallops. Lungs--clear bilaterally, no respiratory distress, no accessory muscle use. Abdomen--normal bowel sounds and soft. Nontender. Nondistended Extremities--no cyanosis or clubbing. No edema. There are good distal pulses b/l. Dermatologic--normal skin turgor, normal color, no abnormal lymph nodes, no rash. Neurologic--cranial nerves II through XII grossly intact. Rheumatologic--normal range of motion. Psychiatric--normal affect. Results & Data Results & Data Vital Signs (Past 12 Hours) Vital Signs Temp Pulse Pulse Resp BP Pulse Ox O2 Del Method 06/04/24 04:00 36.6 C 56 L 18 96/60 L 98 Room Air 06/04/24 00:00 36.8 C 58 L 18 103/72 94 Room Air 06/03/24 22:01 65 06/03/24 20:59 36.3 C L 85 16 108/71 96 Room Air Resident Activity Tracking Resident Involvement: Resident Care Provided Care Provided: Adult Hospital Medicine
[2024-06-04] MEDS: methylPREDNISolone 1,000 MG in DEXTROSE 5% 250 ML IV SCH (06:40)
[2024-06-04] MEDS ORDERED: methylPREDNISolone 1000 MG/16 ML IV SCH (07:00)
--- NOTE | 2024-06-04 11:20 | Neurology Progress Note ---
Date of Service June 04, 2024 Assessment & Plan (1) Demyelinating disease: (2) Right-sided headache: (3) Optic neuritis, right: Plan Patient has a 1 week history of blurry vision in the right eye of sudden onset. Ophthalmologic examination plus MRI of the brain is consistent with an acute right optic neuritis. MRI of the brain with and without contrast shows multiple lesions scattered throughout the hemispheres, cerebellum, and brainstem. Cervical spine MRI shows multiple lesions as well particularly at C2-3. Thoracic spine MRI was remarkable/normal. Although she does not have a lot of history suggestive of MS (left hand numbness for 2 weeks back in January of this year), her clinical picture fits that of MS. She does not have an obvious rheumatologic condition or Lyme's disease (which could imitate MS). Lumbar puncture results are normal so far but special protein studies are pending and may take 2 weeks to come back. Recommendations: 1. Increase activity as able. 2. Solu-Medrol 1 g daily x 3 days. This should be followed by a Medrol Dosepak orally. 3. Obtain hepatitis B panel (hepatitis B surface antigen and anti-HBV)this will be necessary prior to starting disease modifying therapy. 4. Obtain quantitative serum IgGthis will be necessary prior to starting disease modifying therapy 5. Follow-up with neurology as an outpatient in 2 to 3 weeks (could be sooner with neurology PA via telehealth if the patient gets onto the [facility] portal). We will consider definitive disease modifying therapy at that time Overall, I spent a total of 35 minutes with this case including review of records, review of MRI films, direct evaluation the patient at bedside, report generation, and discussion of the case with the patient and RN at bedside, and Dr. Champion, including differential diagnosis and treatment options. Admission and Anticipated Discharge Date Admission Date: June 02, 2024 Subjective Patient is feeling better with her vision today. She has received 2 days of 3 of the Solu-Medrol MRI of the thoracic spine was unremarkable. I reviewed these films. MRI of the cervical spine showed multiple lesions in the brainstem and cervical spine. The biggest was at C2-3. Vitamin D was 20.4. She tells me that she is taking 5000 units of vitamin D3 daily B12 was normal at 408. LP was performed and she had 1 white cell, no red cells, and normal protein of 34 and a normal glucose (when compared to serum). Special protein studies are pending. She has no post LP headache and is sitting up in bed doing well Results & Data Vital Signs (Past 12 Hours) Vital Signs Temp Pulse Resp BP Pulse Ox O2 Del Method 06/04/24 07:22 36.4 C L 58 L 16 90/55 L 98 Room Air 06/04/24 04:00 36.6 C 56 L 18 96/60 L 98 Room Air 06/04/24 00:00 36.8 C 58 L 18 103/72 94 Room Air Exam (Neuro) Physical Exam: The patient is awake, alert, and attentive, with normal speech and communication. Mood is normal and affect is appropriate. The patient is fully oriented and has intact long and short term memory. Extraocular eye muscles are intact without nystagmus. Facial strength and symmetry is normal bilaterally. Facial sensation is normal bilaterally in all 3 divisions of the fifth cranial nerve. Tongue is midline with normal strength bilaterally. Coordination of the arms is normal, without tremor or ataxia bilaterally. Motor strength is 5/5 in all major muscle groups of the arms and legs bilaterally, both proximally and distally. PG Care Time/CCT Total # of Minutes Spent Total Time Spent with Patient: Total time spent is greater than 50% in coordination of care (as documented) at patient's floor/unit and/or counseling patient: Coding Level of Care Code 94653 SUB INP/OBS CARE 2/35MIN Diagnoses Demyelinating disease G37.9 Right-sided headache R51.9 Optic neuritis, right H46.9 Time Spent (min) 35
--- NOTE | 2024-06-04 18:10 | Billing Data ---
Date of Service June 04, 2024 Coding Level of Care Code 33586 SUB INP/OBS CARE
[2024-06-04] MEDS: ERGOCALCIFEROL 1250 MCG (50,000 UNITS) CAP PO ONE (18:57)
--- NOTE | 2024-06-05 06:59 | Discharge Summary ---
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 She presents to the emergency department this evening with symptoms as noted above. In addition, she feels generally weak, and has occasional issues with memory function. Principal Diagnosis Multiple sclerosis Discharge Exam The patient is awake, alert and oriented 3. HEENT--PERRL, EOMI, Mucous membranes and oropharynx normal Neck--supple. No JVD. No bruits. No adenopathy. Heart--normal S1 and S2. No murmurs, rubs or gallops. Lungs--clear bilaterally, no respiratory distress, no accessory muscle use. Abdomen--normal bowel sounds and soft. Nontender. Nondistended Extremities--no cyanosis or clubbing. No edema. There are good distal pulses b/l. Dermatologic--normal skin turgor, normal color, no abnormal lymph nodes, no rash. Neurologic--cranial nerves II through XII grossly intact. Rheumatologic--normal range of motion. Psychiatric--normal affect. Discharge Data Allergies Allergy/AdvReac Type Severity Reaction Status Date / Time pineapple Allergy Unknown Unverified 06/02/24 22:05 Consultations 06/02/24 23:04 ED Decision to Admit Stat 06/03/24 01:31 Consult Neurology Routine Ordered Studies 06/02/24 18:04 MR brain MS wo/w con Stat MRI Orbit [MR orbit wo/w con] Stat 06/03/24 13:01 IR lumbar puncture diagnostic Routine MRI Cervical [MR cervical spine wo/w con] Routine MRI Thoracic [MR thoracic spine wo/w con] Routine Hospital Course (1) Demyelinating disease: (2) Right-sided headache: (3) White matter abnormality on MRI of brain: (4) Optic neuritis, right: Plan Right-sided headache/right optic neuritis/abnormal MRI of brain suggesting demyelinating disease Patient was c/o of headache and progressing blurry vision. She was seen by providers at [facility] and initially referred to ophthalmology. She came to the ED by recommendation of [facility] and found to have brain imaging changes consistent with Multiple Sclerosis. She has received 3 days of IV corticosteroids, lumbar puncture with CSF testing, cervical and thoracic MRI, and screening for autoimmune markers. Lesions were found at cervical spine. CSF and autoimmune panels are pending. - Neurology recs Noted lesions at cervical spine on MRI. Requesting Hep B and IgG serum to screen prior to starting treatment. - IV Solu-Medrol 1000 mg - Lyme, CSF, and autoimmune panels pending - Medrol dose pack for steroid taper at hospital discharge - B12 is mild low at 408, VitD is low at 20.4 - Recommending vitamin B12 supplement and Vit D 3 at [id number] - Upon discharge, recommend establishing PCP and follow up as well as follow up with neurology in outpatient for MS treatment and surveillance. Total Time Total Time Spent Total Time Spent (In Minutes): As per attending physician's attestation Discharge Plan Discharge Items Patient Disposition: Home - Self-Care Reason For Visit: R OPTIC NEURITIS, NEW DEMYELINATING DISEASE Discharge Diagnosis: Multiple Sclerosis Activity: Resume your previous activity Non-emergency contact: Primary Care Provider Call non-emergency contact if: your symptoms worsen Follow-up/Referrals: [facility] [Primary Care Provider] - Diet: Regular Addtl Attending Provider Instructions: After assessing your symptoms and obtaining brain and spinal cord imaging, you have been newly diagnosed with Multiple Sclerosis. Your neurologist, Dr. Odonnell, has requested that you follow-up with neurology as an outpatient in 1 to 2 weeks with the Physician Environmental Engineering Assistant via telehealth through the portal. At that time, you can express your choice of definitive disease modifying therapy. Dr. Odonnell also recommends a Medrol Dosepak to be taken at home to taper off the corticosteroids you received in the hospital. We will send that prescription to your pharmacy. We would also like for you to establish care in the Family Medicine clinic at [address] [place] [address]. You can schedule an appointment with Dr. Radha Tinsley at . We would like to see you in 1 week. We are recommending that you start a B12 supplement as well as a high doses of Vitamin D as these were low in your hospital lab work. We will prescribe 50,000u of Vitamin D2 to be take one time per week and Vitamin D3 10,000u to be taken daily. We will recheck you vitamin levels in 2 months Pending Studies at Discharge: Yes Studies:: Autoimmune panel, CSF panel Stand-Alone Forms: My [facility], Smoking Cessation Medications and DC Order Prescriptions: New methylprednisolone [Medrol (Hugo)] 4 mg tablets,dose pack 4 mg PO DAILY Qty: 21 0RF Rx Instructions: Take tapering dose pack as directed ergocalciferol (vitamin D2) [Drisdol] 1,250 mcg (50,000 unit) capsule 50,000 unit PO .biweekly Qty: 8 0RF cholecalciferol (vitamin D3) [Vitamin D3] 125 mcg (5,000 unit) tablet 10,000 unit PO DAILY Qty: 30 2RF cyanocobalamin (vitamin B-12) [Vitamin B-12] 1,000 mcg tablet 1,000 mcg PO DAILY Qty: 30 2RF Discharge Orders: Discharge Order (Routine); Ordered 06/05/24 Ordered By: Radha Sexton/Other Patient Handouts: Optic Neuritis Admission Data Admit Date/Time: 06/02/24 23:28 Attending Provider: Hakan Champion Admit Provider: Sancho Mccloud Primary Care Provider: [facility] Other Providers: Sancho Mccloud; Eric Odonnell Other Interventions: Discharge Summary Assessment (RN) Last Done: 06/05/24 11:22 Supervising Physician Co-Signing Physician Notes I personally examined the patient and verified all kang points of history and exam, discussed case, and agree with decision making with Dr Tinsley feels up to going home. getting set up w PCP and neuro. d/w neuro input appreciated vitals noted nad heent nc at mmm breathing unlabored no accessory muscles good effort skin no rashes no pallor or icterus new dx MS - steroids: s/p 1g solumedrol x3 days - Medrol dose hugo. LP done, many results pending. MRI brain, C/Tspine noted. will need aggressive D supplementation given that her level is ~20, she already takes 5000IU daily, and time of year makes it such that sunlight will not be adding much to her D for ~5-6 months otherwise as above close outpt f/u
--- NOTE | 2024-06-05 08:11 | Neurology Progress Note ---
Date of Service June 05, 2024 Assessment & Plan (1) Demyelinating disease: (2) Right-sided headache: (3) Optic neuritis, right: Plan Patient has a history of sudden onset blurry vision in the right eye approximately 10 days ago. Ophthalmologic examination, plus MRI of the brain are consistent with an acute right optic neuritis. MRI of the brain with and without contrast shows multiple lesions scattered throughout the hemispheres, cerebellum, and brainstem. There were 2 very small enhancing lesions, 1 in each hemisphere. Cervical spine MRI shows multiple lesions as well particularly at C2-3. Thoracic spine MRI was remarkable/normal. Although she does not have much history of sudden onset neurologic issues (although she had left hand numbness for 2 weeks in January of this year), she clinically and radiographically fits with multiple sclerosis. She does not have an obvious rheumatologic condition or Lyme's disease (which could imitate MS). The 2 enhancing lesions, although small, suggest very active MS particularly in conjunction with her new optic neuritis on the right. Lumbar puncture results are normal so far but special protein studies are pending and may take 2 weeks to come back. I have discussed treatment options with the patient. Given the considerable radiographic lesions (despite her being clinically fairly mild) I would opt for a more aggressive form of disease modifying therapy. Ocrevus or Kesimpta would be my medications of choice to start. She will research these and decide which one of the 2 she is more comfortable with (although similar in efficacy and side effects, Ocrevus is given IV infusion every 6 months and Kesimpta is given subcutaneous injection monthly) Recommendations: 1. Increase activity as able. 2. Complete 3-day IV Solu-Medrol protocol this morning. Follow this with a Medrol Dosepak for 3. Follow-up with neurology as an outpatient in 1 to 2 weeks with the PA (via telehealth through the portal). Patient needs to sign up for the portal today 4. Make a definitive disease modifying therapy choice at that time Overall, I spent a total of 50 minutes with this case including review of records, review of MRI films, direct evaluation the patient at bedside, report generation, and discussion of the case with the patient and RN at bedside, and Dr. Champion, including differential diagnosis and treatment options. Admission and Anticipated Discharge Date Admission Date: June 02, 2024 Subjective Patient has no complaint of pain or headache. She feels a little weak in general but does not have any focal or worse weakness in any particular limb. Overall she feels her vision is better and she can read better. Nursing reports no new issues. Blood pressure was 90/46 and pulse was 40 and regular. She is afebrile. She is on day 3 currently of 3 days of IV Solu-Medrol. Results & Data Vital Signs (Past 12 Hours) Vital Signs Temp Pulse Pulse Resp BP Pulse Ox O2 Del Method 06/05/24 07:42 40 L 06/05/24 07:27 36.6 C 40 L 18 90/46 L 99 Room Air 06/05/24 03:29 36.7 C 47 L 18 96/54 L 99 Room Air 06/04/24 23:59 57 L 06/04/24 23:17 36.8 C 47 L 18 114/70 98 Room Air Exam (Neuro) Physical Exam: She is awake and alert. Speech is without any obvious aphasia or dysarthria. Mood is reasonable and affect is appropriate. Thought processes seem intact and there does not seem to be any confusion Extraocular eye muscles are intact without nystagmus. Pupils are 3 to 4 mm bilaterally reactive to light there is no nystagmus. The patient, when covering 1 eye or the other, can read test phrases quite well, bilaterally. Today, when she moves her eyes she does not have any right eye pain. There is no facial droop. Tongue is midline. Coordination is normal in the arms without tremor or ataxia. Motor strength is essentially 5/5 for diffusely both proximally and distally. Reflexes are 2/4 throughout. Stance sitting up is normal. PG Care Time/CCT Total # of Minutes Spent Total Time Spent with Patient: Total time spent is greater than 50% in coordination of care (as documented) at patient's floor/unit and/or counseling patient: Coding Level of Care Code 75582 SUB INP/OBS CARE 3/50MIN Diagnoses Demyelinating disease G37.9 Right-sided headache R51.9 Optic neuritis, right H46.9
[2024-06-05] MEDS: CHOLECALCIFEROL 25 MCG (1000 UNITS) TAB PO SCH (08:27)
--- NOTE | 2024-06-05 17:44 | Billing Data ---
Date of Service June 05, 2024 Coding Level of Care Code 07127 IN/OBS DISCH 30 MIN/LESS
--- NOTE | 2024-06-05 17:44 | Billing Data ---
Date of Service June 05, 2024 Coding Level of Care Code 76000 IN/OBS DISCH 30 MIN/LESS
[2024-06-06 23:32] LABS: Cryptococcal Antigen Not Detected (Not Detected); Source CSF
== END 2024-06-05 12:55 | disposition home or self-care (01) | DRG 59 ==
LOC: ED 16:54 → SUATTDRO 23:28 → EDINP 23:28 → 2N 06-03 01:31